=== PATIENT | male | born 1960 | race Caucasian/White ===

== ENCOUNTER 2018-12-10 15:56 | Inpatient (IN) | payer MEDICAID ==
--- NOTE | 2018-12-10 17:00 | EDM.PDOC ---
<Naseem Edwards Linda - Last Filed: 12/10/18 20:26> ED HPI GENERAL MEDICAL PROBLEM - General Chief Complaint: Respiratory Problem Stated Complaint: SOB ON EXERTION Time Seen by Provider: 12/10/18 17:00 History Limitations: Reports: No Limitations - History of Present Illness INITIAL COMMENTS - FREE TEXT/NARRATIVE: 58-year-old male sent over from family medicine unit due to increased dyspnea and reported 13 pound weight gain over a period of a month and 30 pounds probably over the last 2 months. Patient has very poorly controlled type 2 diabetes with a hemoglobin A1c today of 11.5. He has known severe congestive heart failure--unclear if this is due to cardiomyopathy or if there is an ischemic component to his disease process. He was sent over for to the ED because of significant ascites and difficulty breathing as well as shortness of breath on minimal exertion. Labs provided from the clinic reveal a white blood cell count of 6.58. Hemoglobin is 11.3 slightly low hematocrit of 37.3. Platelet count was 195,000. Her pharyngeal is normal. Serum ammonia today was 34 with normal being up to 32 in our lab. Sodium was 139 with potassium of 4.6. Chloride 105 with a bicarbonate of 25. And a gap is 13.6. Random glucose was 316. BUN was 24. Creatinine is 1.4 with an EGFR 52. Calcium is 9.1. Total protein is 7.1 with an albumin of 3.1. Bilirubin slightly elevated at 1.6. Alk phosphatase of 71. ALT of 18 and AST of 11. BNP is elevated at 3434 and ultrasound of the abdomen was completed and reveals diffuse ascites considered to be moderate . is therefore essentially sent to the ED for paracentesis and possible admission to the hospital for diuresis. Onset: Gradual (Has gained 13 pounds of weight over the last month and 30 pounds over the last 2 months.) Duration: Week(s):, Getting Worse Location: Reports: Chest (Ascites shortness of breath on minimal exertion with orthopnea.), Abdomen, Lower Extremity, Left (Severe pitting edema of both lower extremities severe pitting edema), Lower Extremity, Right Quality: Reports: Ache, Pressure, Other Severity: Severe (Very little room for food to try and eat.) Improves with: Reports: None Worsens with: Reports: Movement Context: Reports: Other (Terminal congestive heart failure). Denies: Activity ( Walking.), Exercise, Lifting, Sick Contact, Trauma Associated Symptoms: Reports: Cough, cough w sputum, Loss of Appetite, Malaise ( Occasional white sputum), Shortness of Breath. Denies: Confusion, Chest Pain, Diaphoresis, Fever/Chills, Headaches, Nausea/Vomiting, Rash, Seizure, Syncope Treatments AREA RELIEF PILOT: Reports: Other (see below) (Only his prescribed medications. Clearly he needs to be on insulin to control his type 2 diabetes.) - Related Data Allergies Allergy/AdvReac Type Severity Reaction Status Date / Time No Known Allergies Allergy Verified 12/10/18 16:06 Home Meds: Home Meds Aspirin 325 mg PO DAILY 12/10/18 [History] Carvedilol 25 mg PO BID 12/10/18 [History] Lisinopril 20 mg PO DAILY 12/10/18 [History] Sertraline HCl 100 mg PO DAILY 12/10/18 [History] Spironolactone [Aldactone] 25 mg PO DAILY 12/10/18 [History] glipiZIDE [Glucotrol] 5 mg PO DAILY 12/10/18 [History] metFORMIN [Glucophage] 1,000 mg PO BIDMEALS 12/10/18 [History] Past Medical History Cardiovascular History: Reports: Cardiomyopathy, Heart Failure, Hypertension Respiratory History: Reports: SOB, Other (See Below) (I question whether he has sleep apnea.) Genitourinary History: Reports: BPH Social & Family History - Living Situation & Occupation Living situation: Reports: Single Occupation: Employed [facility] [employer] [facility] - Review of Systems Constitutional: Reports: Malaise, Weakness, Fatigue, Weight Gain (3 pounds over the last 2 months). Denies: Fever, Chills HEENT: Reports: Glasses, Vision Change Respiratory: Reports: Shortness of Breath, Cough, Other (Nonproductive orthopnea ). Denies: Wheezing, Pleuritic Chest Pain Cardiovascular: Reports: Blood Pressure Problem (Chronic hypertension), Dyspnea on Exertion (Chronically) Endocrine: Reports: Fatigue, High Glucose (Uncontrolled type 2 diabetes) GI/Abdominal: Reports: Abdominal Pain (Diffuse abdominal pressure discomfort.), Other (Alt remaining diarrhea and formed stool) : Reports: Frequency, Other Musculoskeletal: Reports: Back Pain (Polyuria), Other Skin: Reports: Other (Lateral lower extremity pain venous stasis dermatitis both lower extremities) Neurological: Reports: No Symptoms Psychiatric: Reports: No Symptoms Hematologic/Lymphatic: Reports: No Symptoms Immunologic: Reports: No Symptoms ED EXAM, GENERAL - Physical Exam Exam: See Below Exam Limited By: Other General Appearance: Alert, WD/WN (The patient is mildly hypertensive. Respiratory distress 20/m with O2 sats of 97-99% on room air.), Mild Distress ( Become short of breath on speaking.) Eye Exam: Bilateral Eye: Normal Inspection Throat/Mouth: Normal Inspection, Normal Lips, Normal Oropharynx Head: Atraumatic, Normocephalic Neck: Normal Inspection, Supple, Non-Tender, Full Range of Motion. No: Carotid Bruit, Lymphadenopathy (L), Lymphadenopathy (R) Respiratory/Chest: No Respiratory Distress, No Accessory Muscle Use, Chest Non- Tender (Mild tachypnea 20-24/m. O2 sats 97% on room air.), Respiratory Distress , Rales (Few rales both bases.). No: Normal Breath Sounds Cardiovascular: Regular Rate, Rhythm, No Gallop, No Murmur, No Rub. No: Normal Peripheral Pulses (No pulses are palpable below the femorals due to severe edema of the lower extremities.), No Edema Peripheral Pulses: 0: Popliteal (L) (No pulses are palpable below the femorals due to severe dependent edema both lower extremities.), Popliteal (R), Posterior Tibial (L), Posterior Tibial (R), Dorsalis Pedis (L), Dorsalis Pedis ( R) GI/Abdominal: Distended, Other (The abdomen is morbidly obese. BMI is 40. He has some peau d'orange changes in his lower abdominal wall from edema under the skin. Abdominal girth limits my ability to palpate any solid organs.). No: Guarding (And firm to palpation with a positive ascites fluid wave.), Rigid, Rebound, Tender Back Exam: No: CVA Tenderness (L), CVA Tenderness (R) Extremities: Pedal Edema (Plus pitting edema up above the knees bilaterally.), Other Neurological: Alert, Oriented (Does have changes in his knees compatible with osteoarthritic changes.), CN II-XII Intact, Normal Cognition Psychiatric: Normal Affect Skin Exam: Warm, Dry, Intact, Normal Color, No Rash ED RESPIRATORY PROCEDURES - Additional/Other Procedure(s) Other (Free Text) Procedure(s): Paracentesis attempted 2 but failed due to the length of the paracentesis catheter that is available to us in the kit. A since abdominal girth is very large and although I gained access to the peritoneal cavity on both occasions I could not withdraw any ascites fluid. The catheters are simply too short to need the old pigtail catheters that were silicone and able to place down to the peritoneal cavity in the pelvis to withdraw peritoneal fluid. ED PROCEDURAL SEDATION - Pre Procedure Indications: other Preparations: procedure explained (Paracentesis), consent signed, oxygen, continuous pulse oximeter, suction, continuous netezza architect, constant attendance - Physical Exam Airway: normal anatomy Cardiovascular: normal heart sounds Respiratory: normal breath sounds Neurological: alert, responsive, NAD Meilampati Classification: 1 (soft palate, anterior/posterior tonsillar pillars , uvula visible) - Procedure Sedation Sedation: versed (parenteral), fentanyl (100 g in total ) ASA Classification: 3 (Patient with a severe systemic disease) - Intra Procedure Condition during procedure: moderately sedated, oxygenation stable Complications: none Reversal: none - Post Procedure Condition after procedure: alert, responds to verbal stimuli - Discharge Condition Patient returned to pre-procedure baseline: Yes Alert prior to discharge: Yes Ambulatory with assistance: Yes Vital signs normal: Yes Time spent with sedated patient: 20 min EKG INTERPRETATION EKG Date: 12/10/18 Time: 13:25 (Done at [facility]) Rhythm: NSR Rate (Beats/Min): 79 Kilmichael: LAD-Left Kilmichael Deviation (-45. Consider left anterior fascicular block.) P-Wave: Enlarged (Left atrial hypertrophy) QRS: Other (Left ventricular hypertrophy pattern.) ST-T: Other (Decreased voltage limb leads.) QT: Prolonged (Mildly prolonged) EKG Interpretation Comments: Abnormal ECG Course - Vital Signs Last Recorded V/S: Last Vital Signs Temp 98.4 F 12/11/18 08:03 Pulse 81 12/11/18 08:31 Resp 22 H 12/11/18 04:34 BP 130/77 12/11/18 08:31 Pulse Ox 97 12/11/18 08:03 - Orders/Labs/Meds Orders: Active Orders 24 hr Category Date Time Status Admission Status [Patient Status] [ADT] Routine ADT 12/10/18 19:21 Active Medication Orders Acetaminophen (Tylenol) 650 mg PO Q4H PRN PRN Reason: Pain (Mild 1-3)/fever Aspirin (Ecotrin) 325 mg PO DAILY [facility] Last Admin: 12/11/18 08:31 Dose: 325 mg Carvedilol (Coreg) 25 mg PO BID [facility] Last Admin: 12/11/18 08:31 Dose: 25 mg Dextrose/Water (Dextrose 50% In Water) 50 ml IVPUSH ASDIRECTED PRN PRN Reason: Hypoglycemia Enoxaparin Sodium (Lovenox) 40 mg SUBCUT DAILY [facility] Last Admin: 12/11/18 08:31 Dose: 40 mg Furosemide (Lasix) 40 mg IVPUSH DAILY [facility] Last Admin: 12/11/18 08:27 Dose: 40 mg Insulin Glargine (Lantus) 20 unit SUBCUT DAILY [facility] Last Admin: 12/11/18 08:28 Dose: 20 units Insulin Human Lispro (Humalog) 0 unit SUBCUT QIDACANDBED [facility]; Protocol Last Admin: 12/11/18 08:29 Dose: 3 units Insulin Human Lispro (Humalog) 5 unit SUBCUT TIDAC [facility] Last Admin: 12/11/18 08:30 Dose: 5 units Lisinopril (Prinivil) 20 mg PO DAILY [facility] Last Admin: 12/11/18 08:31 Dose: 20 mg Sertraline HCl (Zoloft) 100 mg PO DAILY [facility] Last Admin: 12/11/18 08:31 Dose: 100 mg Meds: Medications Generic Name Dose Route Start Last Admin Trade Name Freq PRN Reason Stop Dose Admin Acetaminophen 650 mg 12/10/18 22:03 Tylenol PO Q4H PRN Pain (Mild 1-3)/fever Aspirin 325 mg 12/11/18 09:00 12/11/18 08:31 Ecotrin PO 325 mg DAILY [facility] Administration Carvedilol 25 mg 12/11/18 09:00 12/11/18 08:31 Coreg PO 25 mg BID [facility] Administration Dextrose/Water 50 ml 12/10/18 22:11 Dextrose 50% In Water IVPUSH ASDIRECTED PRN Hypoglycemia Enoxaparin Sodium 40 mg 12/11/18 09:00 12/11/18 08:31 Lovenox SUBCUT 40 mg DAILY [facility] Administration Furosemide 40 mg 12/11/18 09:00 12/11/18 08:27 Lasix IVPUSH 40 mg DAILY [facility] Administration Insulin Glargine 20 unit 12/11/18 09:00 12/11/18 08:28 Lantus SUBCUT 20 units DAILY [facility] Administration Insulin Human Lispro 0 unit 12/11/18 07:00 12/11/18 08:29 Humalog SUBCUT 3 units QIDACANDBED [facility] Administration Protocol Insulin Human Lispro 5 unit 12/11/18 07:00 12/11/18 08:30 Humalog SUBCUT 5 units TIDAC [facility] Administration Lisinopril 20 mg 12/11/18 09:00 12/11/18 08:31 Prinivil PO 20 mg DAILY [facility] Administration Sertraline HCl 100 mg 12/11/18 09:00 12/11/18 08:31 Zoloft PO 100 mg DAILY [facility] Administration Discontinued Medications Generic Name Dose Route Start Last Admin Trade Name Freq PRN Reason Stop Dose Admin Fentanyl 250 mcg 12/10/18 17:53 12/10/18 19:09 Sublimaze IVPUSH 12/10/18 17:54 Not Given ONETIME ONE Fentanyl Confirm 12/10/18 17:57 12/10/18 19:09 Sublimaze Administered 12/10/18 17:58 Not Given Dose 300 mcg .ROUTE .STK-MED ONE Fentanyl 100 mcg 12/10/18 19:08 12/10/18 18:15 Sublimaze IVPUSH 12/10/18 19:09 100 mcg ONETIME ONE Administration Furosemide 40 mg 12/10/18 18:52 12/10/18 19:20 Lasix IVPUSH 12/10/18 18:53 40 mg NOW ONE Administration Albumin Human 12.5 gm in 50 mls @ 100 mls/hr 12/10/18 18:07 12/10/18 19:00 Flexbumin 25% IV 12/10/18 18:36 Not Given ONETIME ONE Insulin Glargine 20 unit 12/11/18 06:00 Lantus SUBCUT BIDAC [facility] Insulin Human Lispro 5 unit 12/11/18 06:00 Humalog SUBCUT BIDAC [facility] Lidocaine/Epinephrine 20 ml 12/10/18 17:54 12/10/18 18:30 Xylocaine 1% With Epinephrine 1:100,000 INJECT 12/10/18 17:55 20 ml ONETIME ONE Administration Midazolam HCl 5 mg 12/10/18 17:53 12/11/18 05:41 Versed 1 Mg/Ml IVPUSH 12/10/18 17:54 Not Given ONETIME ONE Midazolam HCl Confirm 12/10/18 17:57 12/10/18 19:09 Versed 1 Mg/Ml Administered 12/10/18 17:58 Not Given Dose 6 mg .ROUTE .STK-MED ONE Midazolam HCl 5 mg 12/10/18 19:04 12/11/18 05:41 Versed 1 Mg/Ml IVPUSH 12/10/18 19:05 Not Given ONETIME ONE Midazolam HCl 5 mg 12/10/18 19:08 12/10/18 18:16 Versed 1 Mg/Ml IVPUSH 12/10/18 19:09 5 mg ONETIME ONE Administration - Radiology Interpretation Free Text/Narrative:: 58-year-old male presents to the ED after physical examination by his care provider at [facility]. Patient has uncontrolled type 2 diabetes with a hemoglobin A1c today of 11.3. He is currently only on oral medications. He has known congestive heart failure with a 13 pound reported weight gain in the last 2 weeks and 30 pounds over the last 6-8 weeks. is severe orthopnea and has to sleep sitting up for the last several months. Abdominal ultrasound done today revealed moderate amount of ascites. Labs also revealed a BNP of 3434. He has primarily right-sided heart failure but obviously has left-sided heart failure as well. Chest x-ray did not reveal any pleural effusions. He was sent to the ED for possibility of paracentesis being performed. I attempted this procedure but equipment that we have has a catheter that is far too short to reach deep into the peritoneal cavity in a man of his size. Therefore 102 failed to provide any paracentesis fluid. Patient needs to come into the hospital for insulin treatment of his type 2 diabetes as medication orally is not going to fix this problem with a hemoglobin A1c of 11.3. He is also on Aldactone 25 mg once a day which will do absolutely nothing for control of his congestive failure. Patient requires an echocardiogram to assess his cardiac function so far his renal function is mostly preserved. Case discussed with Dr. Negrete nutrition intern hospitalist and he will admit the patient to med surgery on telemetry. The patient did receive conscious sedation to allow paracentesis procedure since the first time that he had a done a year ago was extremely uncomfortable patient received 5 mg of Versed in total and 100 g of fentanyl. Sutures are placed in his abdominal wound to make sure there was no bruising of peritoneal fluid. These need to be removed in 10 days' time. Patient was given initial dose of Lasix 40 mg intravenously in the ED. Patient requires coags done tomorrow morning to assess his ability to clot due to passive hepatic congestion. He also needs a serum magnesium done. Departure - Departure Time of Disposition: 20:30 Disposition: Admitted As Inpatient 65 Condition: Fair Clinical Impression: Congestive heart failure Qualifiers: Heart failure type: unspecified Heart failure chronicity: acute on chronic Qualified Code(s): I50.9 - Heart failure, unspecified Ascites Qualifiers: Ascites type: other type Qualified Code(s): R18.8 - Other ascites Uncontrolled type 2 diabetes mellitus Qualifiers: Coma presence: without coma - Discharge Information *PRESCRIPTION DRUG MONITORING PROGRAM REVIEWED*: Not Applicable *COPY OF PRESCRIPTION DRUG MONITORING REPORT IN PATIENT RAS: Not Applicable <Isabel Umanzor - Last Filed: 12/11/18 09:01> ED HPI GENERAL MEDICAL PROBLEM - General Source of Information: Reports: Patient History Limitations: Reports: No Limitations Past Medical History HEENT History: Reports: Impaired Vision Cardiovascular History: Reports: Heart Failure, Hypertension Genitourinary History: Reports: Other (See Below) Other Genitourinary History: proteinuria Neurological History: Reports: CVA Psychiatric History: Reports: Depression Endocrine/Metabolic History: Reports: Diabetes, Type II, Other (See Below) Other Endocrine/Metabolic History: hyperbilirubinemia Social & Family History - Tobacco Use Smoking Status *Q: Former Smoker Used Tobacco, but Quit: Yes Month/Year Tobacco Last Used: 20 years ago - Caffeine Use Caffeine Use: Reports: Coffee ED ROS GENERAL - Review of Systems Review Of Systems: See Below Cardiovascular: Reports: Dyspnea on Exertion, PND. Denies: Chest Pain Course - Orders/Labs/Meds Orders: Active Orders 24 hr Category Date Time Status Admission Status [Patient Status] [ADT] Routine ADT 12/10/18 19:21 Active Medication Orders Acetaminophen (Tylenol) 650 mg PO Q4H PRN PRN Reason: Pain (Mild 1-3)/fever Aspirin (Ecotrin) 325 mg PO DAILY [facility] Last Admin: 12/11/18 08:31 Dose: 325 mg Carvedilol (Coreg) 25 mg PO BID [facility] Last Admin: 12/11/18 08:31 Dose: 25 mg Dextrose/Water (Dextrose 50% In Water) 50 ml IVPUSH ASDIRECTED PRN PRN Reason: Hypoglycemia Enoxaparin Sodium (Lovenox) 40 mg SUBCUT DAILY [facility] Last Admin: 12/11/18 08:31 Dose: 40 mg Furosemide (Lasix) 40 mg IVPUSH DAILY [facility] Last Admin: 12/11/18 08:27 Dose: 40 mg Insulin Glargine (Lantus) 20 unit SUBCUT DAILY [facility] Last Admin: 12/11/18 08:28 Dose: 20 units Insulin Human Lispro (Humalog) 0 unit SUBCUT QIDACANDBED [facility]; Protocol Last Admin: 12/11/18 08:29 Dose: 3 units Insulin Human Lispro (Humalog) 5 unit SUBCUT TIDAC [facility] Last Admin: 12/11/18 08:30 Dose: 5 units Lisinopril (Prinivil) 20 mg PO DAILY [facility] Last Admin: 12/11/18 08:31 Dose: 20 mg Sertraline HCl (Zoloft) 100 mg PO DAILY [facility] Last Admin: 12/11/18 08:31 Dose: 100 mg Meds: Medications Generic Name Dose Route Start Last Admin Trade Name Freq PRN Reason Stop Dose Admin Acetaminophen 650 mg 12/10/18 22:03 Tylenol PO Q4H PRN Pain (Mild 1-3)/fever Aspirin 325 mg 12/11/18 09:00 12/11/18 08:31 Ecotrin PO 325 mg DAILY [facility] Administration Carvedilol 25 mg 12/11/18 09:00 12/11/18 08:31 Coreg PO 25 mg BID [facility] Administration Dextrose/Water 50 ml 12/10/18 22:11 Dextrose 50% In Water IVPUSH ASDIRECTED PRN Hypoglycemia Enoxaparin Sodium 40 mg 12/11/18 09:00 12/11/18 08:31 Lovenox SUBCUT 40 mg DAILY [facility] Administration Furosemide 40 mg 12/11/18 09:00 12/11/18 08:27 Lasix IVPUSH 40 mg DAILY [facility] Administration Insulin Glargine 20 unit 12/11/18 09:00 12/11/18 08:28 Lantus SUBCUT 20 units DAILY [facility] Administration Insulin Human Lispro 0 unit 12/11/18 07:00 12/11/18 08:29 Humalog SUBCUT 3 units QIDACANDBED [facility] Administration Protocol Insulin Human Lispro 5 unit 12/11/18 07:00 12/11/18 08:30 Humalog SUBCUT 5 units TIDAC [facility] Administration Lisinopril 20 mg 12/11/18 09:00 12/11/18 08:31 Prinivil PO 20 mg DAILY [facility] Administration Sertraline HCl 100 mg 12/11/18 09:00 12/11/18 08:31 Zoloft PO 100 mg DAILY [facility] Administration Discontinued Medications Generic Name Dose Route Start Last Admin Trade Name Jesus Alberto PRN Reason Stop Dose Admin Fentanyl 250 mcg 12/10/18 17:53 12/10/18 19:09 Sublimaze IVPUSH 12/10/18 17:54 Not Given ONETIME ONE Fentanyl Confirm 12/10/18 17:57 12/10/18 19:09 Sublimaze Administered 12/10/18 17:58 Not Given Dose 300 mcg .ROUTE .STK-MED ONE Fentanyl 100 mcg 12/10/18 19:08 12/10/18 18:15 Sublimaze IVPUSH 12/10/18 19:09 100 mcg ONETIME ONE Administration Furosemide 40 mg 12/10/18 18:52 12/10/18 19:20 Lasix IVPUSH 12/10/18 18:53 40 mg NOW ONE Administration Albumin Human 12.5 gm in 50 mls @ 100 mls/hr 12/10/18 18:07 12/10/18 19:00 Flexbumin 25% IV 12/10/18 18:36 Not Given ONETIME ONE Insulin Glargine 20 unit 12/11/18 06:00 Lantus SUBCUT BIDAC [facility] Insulin Human Lispro 5 unit 12/11/18 06:00 Humalog SUBCUT BIDAC [facility] Lidocaine/Epinephrine 20 ml 12/10/18 17:54 12/10/18 18:30 Xylocaine 1% With Epinephrine 1:100,000 INJECT 12/10/18 17:55 20 ml ONETIME ONE Administration Midazolam HCl 5 mg 12/10/18 17:53 12/11/18 05:41 Versed 1 Mg/Ml IVPUSH 12/10/18 17:54 Not Given ONETIME ONE Midazolam HCl Confirm 12/10/18 17:57 12/10/18 19:09 Versed 1 Mg/Ml Administered 12/10/18 17:58 Not Given Dose 6 mg .ROUTE .STK-MED ONE Midazolam HCl 5 mg 12/10/18 19:04 12/11/18 05:41 Versed 1 Mg/Ml IVPUSH 12/10/18 19:05 Not Given ONETIME ONE Midazolam HCl 5 mg 12/10/18 19:08 12/10/18 18:16 Versed 1 Mg/Ml IVPUSH 12/10/18 19:09 5 mg ONETIME ONE Administration - Re-Assessments/Exams Free Text/Narrative Re-Assessment/Exam: 12/10/18 17:[address] Radford, surgery nutrition intern. He does not preform paracentesis. Discussed with Dr. Edwards, Care transferred to Dr. Edwards. Plan for Dr. Edwards to preform the paracentesis.
[2018-12-10] MEDS ORDERED: fentaNYL 250 MCG/5 ML SDV IVPUSH ONE (17:53)
[2018-12-10] MEDS ORDERED: Midazolam 1 MG/ML 5 ML SDV IVPUSH ONE ×3 (17:53→19:08)
[2018-12-10] MEDS ORDERED: Lidocaine 1% with EPINEPHrine 1:100,000 20 ML MDV INJECT ONE (17:54)
[2018-12-10] MEDS ORDERED: fentaNYL 100 MCG/2 ML SDV ONE (17:57)
[2018-12-10] MEDS ORDERED: Midazolam 1 MG/ML 2 ML SDV ONE (17:57)
[2018-12-10] MEDS ORDERED: Albumin 25% 12.5 GM/50 ML BAG IV ONE (18:07)
[2018-12-10] MEDS ORDERED: Furosemide 40 MG/4 ML VIAL IVPUSH ONE (18:52)
[2018-12-10] MEDS ORDERED: fentaNYL 100 MCG/2 ML SDV IVPUSH ONE (19:08)
[2018-12-10] MEDS ORDERED: Acetaminophen 325 MG Tab PO PRN (22:03)
[2018-12-10] MEDS ORDERED: 50% Dextrose in Water 50 ML Syringe IVPUSH PRN (22:11)
[2018-12-11] MEDS ORDERED: Insulin Glarg,Human.Rec.Analog 100 UNIT/ML ML SUBCUT SCH (06:00)
[2018-12-11] MEDS ORDERED: Insulin Lispro 100 Units/ML 3 ML Vial SUBCUT SCH (06:00)
[2018-12-11 08:05] LABS: HEMOGLOBIN A1C 11.3 % (4.50-6.20)
[2018-12-11] MEDS: Insulin Glarg,Human.Rec.Analog 100 UNIT/ML ML SUBCUT SCH (08:28)
[2018-12-11] MEDS: Insulin Lispro 100 Units/ML 3 ML Vial SUBCUT SCH ×8 (08:29→21:50)
[2018-12-11] MEDS: Lisinopril 20 MG Tab PO SCH (08:31)
[2018-12-11] MEDS: Carvedilol 12.5 MG Tab PO SCH ×2 (08:31→20:17)
[2018-12-11] MEDS: Enoxaparin 40 MG/0.4 ML Syringe SUBCUT SCH (08:31)
[2018-12-11] MEDS: Sertraline 50 MG Tab PO SCH (08:31)
[2018-12-11] MEDS: Aspirin 325 MG Tab.EC PO SCH (08:31)
[2018-12-11] MEDS ORDERED: Furosemide 40 MG/4 ML VIAL IVPUSH SCH (09:00)
--- NOTE | 2018-12-11 10:23 | CR ---
Chest: Portable view of the chest was obtained. Comparison: Prior chest x-ray of 12/10/18. Heart is enlarged. Pulmonary vessels are slightly increased which appear stable. Lungs show no acute parenchymal change. Bony structures are grossly intact. Impression: 1. Stable cardiomegaly. Mild chronic pulmonary vascular congestion. Diagnostic code #2
[2018-12-11] MEDS ORDERED: Magnesium Sulfate/Water 2 GM in Premix Bag 1 BAG IV ONE (11:04)
--- NOTE | 2018-12-11 14:34 | PCM.HP ---
H&P History of Present Illness - General Date of Service: 12/11/18 Admit Problem/Dx: Admission Diagnosis/Problem Admission Diagnosis/Problem Congestive heart failure - History of Present Illness Initial Comments - Free Text/Narative: 58 yo WM admitted through ED after a visit to primary provider. Was noticed to have gained 16 Lbs, increased abdominal girth. It was felt that the patient might benefit from paracentesis, attempts were made in ED, unsuccessful. The patient is somewhat secretive and desponded, refuses to answer pertinent questions. Has uncontrolled DM, states that not monitoring BG due to risk of loosing job due to the diagnosis. Admitted for further treatment. - Related Data Allergies/Adverse Reactions: Allergies Allergy/AdvReac Type Severity Reaction Status Date / Time No Known Allergies Allergy Verified 12/10/18 16:06 Home Medications: Home Meds Aspirin 325 mg PO DAILY 12/10/18 [History] Carvedilol 25 mg PO BID 12/10/18 [History] Lisinopril 20 mg PO DAILY 12/10/18 [History] Sertraline HCl 100 mg PO DAILY 12/10/18 [History] Spironolactone [Aldactone] 25 mg PO DAILY 12/10/18 [History] glipiZIDE [Glucotrol] 5 mg PO DAILY 12/10/18 [History] metFORMIN [Glucophage] 1,000 mg PO BIDMEALS 12/10/18 [History] Past Medical History HEENT History: Reports: Impaired Vision Cardiovascular History: Reports: Heart Failure, Hypertension Respiratory History: Reports: SOB, Other (See Below) Other Respiratory History: current dx Genitourinary History: Reports: Other (See Below) Other Genitourinary History: proteinuria Musculoskeletal History: Reports: Other (See Below) Other Musculoskeletal History: broken right wrist and left leg when a child Neurological History: Reports: CVA Other Neuro History: approximately 6 years, residual swallowing difficulty and speaking difficulty at times. Psychiatric History: Reports: Depression Other Psychiatric History: post stroke Endocrine/Metabolic History: Reports: Diabetes, Type II, Other (See Below) Other Endocrine/Metabolic History: hyperbilirubinemia - Infectious Disease History Infectious Disease History: Reports: Chicken Pox - Past Surgical History HEENT Surgical History: Reports: None Cardiovascular Surgical History: Reports: None Respiratory Surgical History: Reports: None Male Surgical History: Reports: None Endocrine Surgical History: Reports: None Musculoskeletal Surgical History: Reports: None Social & Family History - Family History Respiratory: Reports: COPD, Other (See Below) Other Respiratory Family Hisory: mother - Tobacco Use Smoking Status *Q: Former Smoker Used Tobacco, but Quit: Yes Month/Year Tobacco Last Used: 20 years ago Second Hand Smoke Exposure: No - Caffeine Use Caffeine Use: Reports: Coffee - Recreational Drug Use Recreational Drug Use: No - Living Situation & Occupation Living situation: Reports: Single Occupation: Employed H&P Review of Systems - Review of Systems: Review Of Systems: See Below General: Reports: Weight Gain. Denies: Fever, Chills HEENT: Denies: Sore Throat, Visual Changes Pulmonary: Reports: Shortness of Breath. Denies: Wheezing, Pleuritic Chest Pain , Cough, Hemoptysis Cardiovascular: Reports: Dyspnea on Exertion, Edema. Denies: Chest Pain, Palpitations, Syncope Gastrointestinal: Reports: Other (increasing abdominal girth). Denies: Abdominal Pain, Anorexia, Diarrhea, Vomiting Genitourinary: Denies: Dysuria, Frequency Skin: Denies: Cyanosis, Jaundice Psychiatric: Denies: Confusion, Depression, Suicidal Ideation Neurological: Reports: Pre-Existing Deficit (left facial) Hematologic/Lymphatic: Denies: Easy Bleeding, Easy Bruising Exam - Exam Exam: See Below - Vital Signs Vital Signs: Last Vital Signs Temp 98.4 F 12/11/18 08:03 Pulse 81 12/11/18 08:31 Resp 22 H 12/11/18 04:34 BP 130/77 12/11/18 08:31 Pulse Ox 97 12/11/18 08:03 Weight: 302 lb - Exam Quality Assessment: No: Supplemental Oxygen General: Alert, Oriented HEENT: Conjunctiva Clear, EOMI, Mucosa Moist & [place], Pupils Equal Neck: Supple, Trachea Midline, JVD Lungs: Clear to Auscultation, Rales. No: Wheezing Cardiovascular: Regular Rate, Regular Rhythm, Normal S1, Normal S2. No: Gallop/ S3 GI/Abdominal Exam: Normal Bowel Sounds, Distended. No: Tender Extremities: Pedal Edema, Other (venous stasis) Peripheral Pulses: 2+: Dorsalis Pedis (L), Dorsalis Pedis (R) Skin: Warm, Dry, Intact Neuro Extensive - Mental Status: Alert, Oriented x3, Memory Intact Neuro Extensive - Motor, Sensory, Reflexes: Facial palsy (L), Facial Palsy wo Forehead Psychiatric: Alert, Homicidal Ideation - Patient Data Lab Results Last 24 hrs: Laboratory Results - last 24 hr 12/11/18 12/11/18 12/11/18 Range/Units 05:50 05:50 05:50 WBC 5.98 (4.23-9.07) K/mm3 RBC 4.34 L (4.63-6.08) M/mm3 Hgb 11.4 L (13.7-17.5) gm/L Hct 37.5 L (40.1-51.0) % MCV 86.4 (79.0-92.2) fl MCH 26.3 (25.7-32.2) pg MCHC 30.4 L (32.2-35.5) g/dl RDW Std Deviation 55.7 H (35.1-43.9) fL Plt Count 185 (163-337) K/mm3 MPV 11.4 (9.4-12.3) fl Neut % (Auto) 63.1 (34.0-67.9) % Lymph % (Auto) 19.4 L (21.8-53.1) % Hitchcock % (Auto) 14.0 H (5.3-12.2) % Eos % (Auto) 2.3 (0.8-7.0) Baso % (Auto) 1.2 (0.1-1.2) % Neut # (Auto) 3.77 (1.78-5.38) K/mm3 Lymph # (Auto) 1.16 L (1.32-3.57) K/mm3 Hitchcock # (Auto) 0.84 H (0.30-0.82) K/mm3 Eos # (Auto) 0.14 (0.04-0.54) K/mm3 Baso # (Auto) 0.07 (0.01-0.08) K/mm3 PT 12.6 H (9.5-12.1) SECONDS INR 1.16 APTT 26 (24-31) SECONDS Sodium 141 (136-145) mEq/L Potassium 4.1 (3.5-5.1) mEq/L Chloride 104 (98-107) mEq/L Carbon Dioxide 27 (21-32) mEq/L Anion Gap 14.1 (5-15) BUN 26 H (7-18) mg/dL Creatinine 1.1 (0.7-1.3) mg/dL Est Cr Clr Drug Dosing 84.07 mL/min Estimated GFR (MDRD) > 60 (>60) mL/min BUN/Creatinine Ratio 23.6 H (14-18) Glucose 237 H (74-106) mg/dL POC Glucose (70-105) mg/dL Hemoglobin A1c (4.50-6.20) % Calcium 8.8 (8.5-10.1) mg/dL Phosphorus 4.1 (2.6-4.7) mg/dL Magnesium 1.4 L (1.8-2.4) mg/dl Total Bilirubin 1.8 H (0.2-1.0) mg/dL AST 12 L (15-37) U/L ALT 14 L (16-63) U/L Alkaline Phosphatase 59 (46-116) U/L Total Protein 6.9 (6.4-8.2) g/dl Albumin 3.0 L (3.4-5.0) g/dl Globulin 3.9 gm/dL Albumin/Globulin Ratio 0.8 L (1-2) Triglycerides 59 (<150) mg/dL Cholesterol 80 (<200) mg/dL LDL Cholesterol Direct 47 (<100) mg/dL HDL Cholesterol 26.0 L (40-59) mg/dL 12/11/18 12/11/18 12/11/18 Range/Units 05:50 06:28 11:34 WBC (4.23-9.07) K/mm3 RBC (4.63-6.08) M/mm3 Hgb (13.7-17.5) gm/L Hct (40.1-51.0) % MCV (79.0-92.2) fl MCH (25.7-32.2) pg MCHC (32.2-35.5) g/dl RDW Std Deviation (35.1-43.9) fL Plt Count (163-337) K/mm3 MPV (9.4-12.3) fl Neut % (Auto) (34.0-67.9) % Lymph % (Auto) (21.8-53.1) % Hitchcock % (Auto) (5.3-12.2) % Eos % (Auto) (0.8-7.0) Baso % (Auto) (0.1-1.2) % Neut # (Auto) (1.78-5.38) K/mm3 Lymph # (Auto) (1.32-3.57) K/mm3 Hitchcock # (Auto) (0.30-0.82) K/mm3 Eos # (Auto) (0.04-0.54) K/mm3 Baso # (Auto) (0.01-0.08) K/mm3 PT (9.5-12.1) SECONDS INR APTT (24-31) SECONDS Sodium (136-145) mEq/L Potassium (3.5-5.1) mEq/L Chloride (98-107) mEq/L Carbon Dioxide (21-32) mEq/L Anion Gap (5-15) BUN (7-18) mg/dL Creatinine (0.7-1.3) mg/dL Est Cr Clr Drug Dosing mL/min Estimated GFR (MDRD) (>60) mL/min BUN/Creatinine Ratio (14-18) Glucose (74-106) mg/dL POC Glucose 259 H 268 H (70-105) mg/dL Hemoglobin A1c 11.30 H (4.50-6.20) % Calcium (8.5-10.1) mg/dL Phosphorus (2.6-4.7) mg/dL Magnesium (1.8-2.4) mg/dl Total Bilirubin (0.2-1.0) mg/dL AST (15-37) U/L ALT (16-63) U/L Alkaline Phosphatase (46-116) U/L Total Protein (6.4-8.2) g/dl Albumin (3.4-5.0) g/dl Globulin gm/dL Albumin/Globulin Ratio (1-2) Triglycerides (<150) mg/dL Cholesterol (<200) mg/dL LDL Cholesterol Direct (<100) mg/dL HDL Cholesterol (40-59) mg/dL Result Diagrams: 12/11/18 05:50 12/11/18 05:50 - Problem List (1) Congestive heart failure SNOMED Code(s): 63779689 ICD Code: I50.9 - HEART FAILURE, UNSPECIFIED Status: Acute Priority: High Current Visit: Yes Qualifiers: Heart failure type: unspecified Heart failure chronicity: acute on chronic Qualified Code(s): I50.9 - Heart failure, unspecified (2) Uncontrolled type 2 diabetes mellitus SNOMED Code(s): 829791433, 982354934 ICD Code: E11.65 - TYPE 2 DIABETES MELLITUS WITH HYPERGLYCEMIA Status: Acute Priority: High Current Visit: Yes Qualifiers: Coma presence: without coma Problem List Initiated/Reviewed/Updated: Yes Orders Last 24hrs: Active Orders 24 hr Category Date Time Status Admission Status [Patient Status] [ADT] Routine ADT 12/10/18 19:21 Active Blood Glucose Check, Bedside [RC] QIDACANDBED Care 12/10/18 22:16 Active Height and Weight [RC] 04 Care 12/10/18 22:03 Active Oxygen Therapy [RC] PRN Care 12/10/18 22:03 Active Up ad Rosangela [RC] BID Care 12/10/18 22:03 Active VTE/DVT Education [RC] PER UNIT ROUTINE Care 12/10/18 22:03 Active Vital Signs [RC] Q4HR Care 12/10/18 22:03 Active Weight, Daily [Height and Weight] [RC] DAILY Care 12/11/18 14:26 Active Consult to Diabetic Nurse Specialist [CONS] Routine Cons 12/10/18 22:03 Active Consult to Mileage Clerk [CONS] Routine Cons 12/11/18 07:54 Active DUPLIGRAPH OPERATOR Evaluation and Treatment [CONS] Routine Cons 12/11/18 11:04 Active Heart Healthy Diet [DIET] Diet 12/11/18 Breakfast Active Echo Comp wo Cont [US] Routine Exams 12/11/18 14:25 Ordered ABG [BLOOD GAS ARTERIAL] [BG] Timed Lab 12/11/18 14:25 Ordered CBC WITH AUTO DIFF [HEME] AM Lab 12/12/18 05:11 Ordered COMPREHENSIVE METABOLIC PN,CMP [CHEM] AM Lab 12/12/18 05:11 Ordered CREATINE KINASE,CK [CHEM] AM Lab 12/12/18 05:11 Ordered LACTIC ACID [CHEM] Routine Lab 12/11/18 14:25 Ordered LIPASE [CHEM] AM Lab 12/12/18 05:11 Ordered LIPID PANEL [CHEM] AM Lab 12/12/18 05:11 Ordered MAGNESIUM [CHEM] AM Lab 12/12/18 05:00 Ordered PHOSPHORUS [CHEM] AM Lab 12/12/18 05:00 Ordered PRO B-TYPE NATRIUR PEPT,BNPPRO [CHEM] AM Lab 12/12/18 05:11 Ordered PTT,PARTIAL THROMBOPLSTIN TIME [COAG] AM Lab 12/12/18 05:11 Ordered TROPONIN I [CHEM] AM Lab 12/12/18 05:11 Ordered TSH [CHEM] AM Lab 12/12/18 05:11 Ordered Acetaminophen [Tylenol] Med 12/10/18 22:03 Active 650 mg PO Q4H PRN Aspirin [Ecotrin] Med 12/11/18 09:00 Active 325 mg PO DAILY Carvedilol [Coreg] Med 12/11/18 09:00 Active 25 mg PO BID Dextrose 50% in Water Med 12/10/18 22:11 Active 50 ml IVPUSH ASDIRECTED PRN Enoxaparin [Lovenox] Med 12/11/18 09:00 Active 40 mg SUBCUT DAILY Insulin Glarg,Human.Rec.Analog [LantUS] Med 12/11/18 09:00 Active 20 unit SUBCUT DAILY Insulin Lispro [HumaLOG] Med 12/11/18 07:00 Active 5 unit SUBCUT TIDAC Insulin Lispro [HumaLOG] Med 12/11/18 14:28 Ordered See Protocol SUBCUT QIDACANDBED Lisinopril [Prinivil] Med 12/11/18 09:00 Active 20 mg PO DAILY Sertraline [Zoloft] Med 12/11/18 09:00 Active 100 mg PO DAILY Resuscitation Status Routine Resus Stat 12/10/18 21:50 Ordered Medication Orders Acetaminophen (Tylenol) 650 mg PO Q4H PRN PRN Reason: Pain (Mild 1-3)/fever Aspirin (Ecotrin) 325 mg PO DAILY [facility] Last Admin: 12/11/18 08:31 Dose: 325 mg Carvedilol (Coreg) 25 mg PO BID [facility] Last Admin: 12/11/18 08:31 Dose: 25 mg Dextrose/Water (Dextrose 50% In Water) 50 ml IVPUSH ASDIRECTED PRN PRN Reason: Hypoglycemia Enoxaparin Sodium (Lovenox) 40 mg SUBCUT DAILY [facility] Last Admin: 12/11/18 08:31 Dose: 40 mg Insulin Glargine (Lantus) 20 unit SUBCUT DAILY [facility] Last Admin: 12/11/18 08:28 Dose: 20 units Insulin Human Lispro (Humalog) 5 unit SUBCUT TIDAC [facility] Last Admin: 12/11/18 11:42 Dose: 5 units Admin: 12/11/18 08:30 Dose: 5 units Insulin Human Lispro (Humalog) 0 unit SUBCUT QIDACANDBED [facility]; Protocol Lisinopril (Prinivil) 20 mg PO DAILY [facility] Last Admin: 12/11/18 08:31 Dose: 20 mg Sertraline HCl (Zoloft) 100 mg PO DAILY [facility] Last Admin: 12/11/18 08:31 Dose: 100 mg Assessment/Plan Comment:: 1. Daily weights, 2D ECHO, diuresis, unloading, ACEi, BBL. 2. Start glargine with SSI. 3. DVTP. 4. Unlikely the patient needs urgent paracentesis. Will observe the response with the above.
[2018-12-11] MEDS ORDERED: Furosemide 40 MG/4 ML VIAL IVPUSH ONE (14:44)
[2018-12-11] MEDS ORDERED: FUROSEMIDE IV ONE ×2 (15:00→15:02)
[2018-12-11] MEDS ORDERED: SODIUM CHLORIDE 0.9% IV ONE ×2 (15:00→15:02)
[2018-12-11] MEDS: Spironolactone 25 MG Tab PO SCH ×2 (15:24→20:18)
[2018-12-12] MEDS ORDERED: 50% Dextrose in Water 50 ML SDV IV PRN (07:05)
[2018-12-12] MEDS: Insulin Lispro 100 Units/ML 3 ML Vial SUBCUT SCH ×7 (08:25→21:03)
[2018-12-12] MEDS: Enoxaparin 40 MG/0.4 ML Syringe SUBCUT SCH (08:25)
[2018-12-12] MEDS: Insulin Glarg,Human.Rec.Analog 100 UNIT/ML ML SUBCUT SCH (08:27)
[2018-12-12] MEDS: Aspirin 325 MG Tab.EC PO SCH (08:28)
[2018-12-12] MEDS: Sertraline 50 MG Tab PO SCH (08:28)
[2018-12-12] MEDS: Spironolactone 25 MG Tab PO SCH ×2 (08:28→20:54)
[2018-12-12] MEDS: Carvedilol 12.5 MG Tab PO SCH ×2 (08:28→20:55)
[2018-12-12] MEDS: Lisinopril 20 MG Tab PO SCH (08:28)
[2018-12-12] MEDS ORDERED: Magnesium Sulfate/Water 2 GM in Premix Bag 1 BAG IV ONE (10:00)
--- NOTE | 2018-12-12 12:16 | PCM.PN ---
- General Info Date of Service: 12/12/18 Admission Dx/Problem (Free Text): Admission Diagnosis/Problem Admission Diagnosis/Problem Congestive heart failure 58 yo WM admitted through ED after a visit to primary provider. Was noticed to have gained 16 Lbs, increased abdominal girth. It was felt that the patient might benefit from paracentesis, attempts were made in ED, unsuccessful. The patient is somewhat secretive and desponded, refuses to answer pertinent questions. Has uncontrolled DM, states that not monitoring BG due to risk of loosing job due to the diagnosis. Admitted for further treatment. 12/12/18, responding well to diuresis, electrolytes replaced, SOB improving, ECHO results still pending. - Review of Systems Systems Review Comment:: General: Reports: Weight Gain. Denies: Fever, Chills HEENT: Denies: Sore Throat, Visual Changes Pulmonary: Reports: Shortness of Breath. Denies: Wheezing, Pleuritic Chest Pain , Cough, Hemoptysis Cardiovascular: Reports: Dyspnea on Exertion, Edema. Denies: Chest Pain, Palpitations, Syncope Gastrointestinal: Reports: Other (increasing abdominal girth). Denies: Abdominal Pain, Anorexia, Diarrhea, Vomiting Genitourinary: Denies: Dysuria, Frequency Skin: Denies: Cyanosis, Jaundice Psychiatric: Denies: Confusion, Depression, Suicidal Ideation Neurological: Reports: Pre-Existing Deficit (left facial) Hematologic/Lymphatic: Denies: Easy Bleeding, Easy Bruising - Patient Data Vitals - Most Recent: Last Vital Signs Temp 97.3 F 12/12/18 07:30 Pulse 71 12/12/18 08:28 Resp 20 12/12/18 07:30 BP 121/89 12/12/18 08:28 Pulse Ox 96 12/12/18 07:30 Weight - Most Recent: 297 lb 3.2 oz I&O - Last 24 Hours: Intake & Output 12/12/18 12/12/18 12/12/18 03:59 11:59 19:59 Intake Total 440 Output Total 2350 Balance -1910 Lab Results Last 24 Hours: Laboratory Results - last 24 hr 12/11/18 12/11/18 12/11/18 Range/Units 14:53 15:35 17:28 WBC (4.23-9.07) K/mm3 RBC (4.63-6.08) M/mm3 Hgb (13.7-17.5) gm/L Hct (40.1-51.0) % MCV (79.0-92.2) fl MCH (25.7-32.2) pg MCHC (32.2-35.5) g/dl RDW Std Deviation (35.1-43.9) fL Plt Count (163-337) K/mm3 MPV (9.4-12.3) fl Neut % (Auto) (34.0-67.9) % Lymph % (Auto) (21.8-53.1) % [place] % (Auto) (5.3-12.2) % Eos % (Auto) (0.8-7.0) Baso % (Auto) (0.1-1.2) % Neut # (Auto) (1.78-5.38) K/mm3 Lymph # (Auto) (1.32-3.57) K/mm3 [place] # (Auto) (0.30-0.82) K/mm3 Eos # (Auto) (0.04-0.54) K/mm3 Baso # (Auto) (0.01-0.08) K/mm3 APTT (24-31) SECONDS Puncture Site Lt radial ABG pH 7.39 (7.35-7.45) ABG pCO2 43.2 (35.0-45.0) mmHg ABG pO2 72.0 L (80.0-100.0) mmHg ABG HCO3 25.5 (22.0-26.0) meq/L ABG O2 Saturation 92.2 L (96.0-97.0) % ABG Base Excess 0.9 (-2-2.0) Vik Test Positive A-a Gradient 9 mmHg O2 Delivery Device Room air FiO2 21.00 (21.00-100.00) % Sodium (136-145) mEq/L Potassium (3.5-5.1) mEq/L Chloride (98-107) mEq/L Carbon Dioxide (21-32) mEq/L Anion Gap (5-15) BUN (7-18) mg/dL Creatinine (0.7-1.3) mg/dL Est Cr Clr Drug Dosing mL/min Estimated GFR (MDRD) (>60) mL/min BUN/Creatinine Ratio (14-18) Glucose (74-106) mg/dL POC Glucose 231 H (70-105) mg/dL Lactic Acid 1.8 (0.4-2.0) mmol/L Calcium (8.5-10.1) mg/dL Phosphorus (2.6-4.7) mg/dL Magnesium (1.8-2.4) mg/dl Total Bilirubin (0.2-1.0) mg/dL AST (15-37) U/L ALT (16-63) U/L Alkaline Phosphatase (46-116) U/L Creatine Kinase (39-308) U/L Troponin I (0.00-0.056) ng/mL NT-Pro-B Natriuret Pep (0-125) pg/mL Total Protein (6.4-8.2) g/dl Albumin (3.4-5.0) g/dl Globulin gm/dL Albumin/Globulin Ratio (1-2) Triglycerides (<150) mg/dL Cholesterol (<200) mg/dL LDL Cholesterol Direct (<100) mg/dL HDL Cholesterol (40-59) mg/dL Lipase (73-393) U/L TSH 3rd Generation (0.358-3.74) uIU/mL 12/11/18 12/11/18 12/12/18 Range/Units 20:08 21:02 04:45 WBC (4.23-9.07) K/mm3 RBC (4.63-6.08) M/mm3 Hgb (13.7-17.5) gm/L Hct (40.1-51.0) % MCV (79.0-92.2) fl MCH (25.7-32.2) pg MCHC (32.2-35.5) g/dl RDW Std Deviation (35.1-43.9) fL Plt Count (163-337) K/mm3 MPV (9.4-12.3) fl Neut % (Auto) (34.0-67.9) % Lymph % (Auto) (21.8-53.1) % [place] % (Auto) (5.3-12.2) % Eos % (Auto) (0.8-7.0) Baso % (Auto) (0.1-1.2) % Neut # (Auto) (1.78-5.38) K/mm3 Lymph # (Auto) (1.32-3.57) K/mm3 [place] # (Auto) (0.30-0.82) K/mm3 Eos # (Auto) (0.04-0.54) K/mm3 Baso # (Auto) (0.01-0.08) K/mm3 APTT (24-31) SECONDS Puncture Site ABG pH (7.35-7.45) ABG pCO2 (35.0-45.0) mmHg ABG pO2 (80.0-100.0) mmHg ABG HCO3 (22.0-26.0) meq/L ABG O2 Saturation (96.0-97.0) % ABG Base Excess (-2-2.0) Vik Test A-a Gradient mmHg O2 Delivery Device FiO2 (21.00-100.00) % Sodium 139 (136-145) mEq/L Potassium 4.3 (3.5-5.1) mEq/L Chloride 101 (98-107) mEq/L Carbon Dioxide 31 (21-32) mEq/L Anion Gap 11.3 (5-15) BUN 32 H (7-18) mg/dL Creatinine 1.3 (0.7-1.3) mg/dL Est Cr Clr Drug Dosing 71.16 mL/min Estimated GFR (MDRD) 57 (>60) mL/min BUN/Creatinine Ratio 24.6 H (14-18) Glucose 200 H (74-106) mg/dL POC Glucose 191 H (70-105) mg/dL Lactic Acid (0.4-2.0) mmol/L Calcium 9.5 (8.5-10.1) mg/dL Phosphorus 4.7 4.6 (2.6-4.7) mg/dL Magnesium 1.8 1.7 L (1.8-2.4) mg/dl Total Bilirubin (0.2-1.0) mg/dL AST (15-37) U/L ALT (16-63) U/L Alkaline Phosphatase (46-116) U/L Creatine Kinase (39-308) U/L Troponin I (0.00-0.056) ng/mL NT-Pro-B Natriuret Pep (0-125) pg/mL Total Protein (6.4-8.2) g/dl Albumin (3.4-5.0) g/dl Globulin gm/dL Albumin/Globulin Ratio (1-2) Triglycerides (<150) mg/dL Cholesterol (<200) mg/dL LDL Cholesterol Direct (<100) mg/dL HDL Cholesterol (40-59) mg/dL Lipase (73-393) U/L TSH 3rd Generation (0.358-3.74) uIU/mL 12/12/18 12/12/18 12/12/18 Range/Units 04:45 04:45 04:45 WBC 6.73 (4.23-9.07) K/mm3 RBC 4.19 L (4.63-6.08) M/mm3 Hgb 10.9 L (13.7-17.5) gm/L Hct 35.6 L (40.1-51.0) % MCV 85.0 (79.0-92.2) fl MCH 26.0 (25.7-32.2) pg MCHC 30.6 L (32.2-35.5) g/dl RDW Std Deviation 53.5 H (35.1-43.9) fL Plt Count 196 (163-337) K/mm3 MPV 11.4 (9.4-12.3) fl Neut % (Auto) 70.5 H (34.0-67.9) % Lymph % (Auto) 15.9 L (21.8-53.1) % [place] % (Auto) 11.1 (5.3-12.2) % Eos % (Auto) 1.9 (0.8-7.0) Baso % (Auto) 0.6 (0.1-1.2) % Neut # (Auto) 4.74 (1.78-5.38) K/mm3 Lymph # (Auto) 1.07 L (1.32-3.57) K/mm3 [place] # (Auto) 0.75 (0.30-0.82) K/mm3 Eos # (Auto) 0.13 (0.04-0.54) K/mm3 Baso # (Auto) 0.04 (0.01-0.08) K/mm3 APTT 26 (24-31) SECONDS Puncture Site ABG pH (7.35-7.45) ABG pCO2 (35.0-45.0) mmHg ABG pO2 (80.0-100.0) mmHg ABG HCO3 (22.0-26.0) meq/L ABG O2 Saturation (96.0-97.0) % ABG Base Excess (-2-2.0) Vik Test A-a Gradient mmHg O2 Delivery Device FiO2 (21.00-100.00) % Sodium 138 (136-145) mEq/L Potassium 4.2 (3.5-5.1) mEq/L Chloride 101 (98-107) mEq/L Carbon Dioxide 28 (21-32) mEq/L Anion Gap 13.2 (5-15) BUN 31 H (7-18) mg/dL Creatinine 1.1 (0.7-1.3) mg/dL Est Cr Clr Drug Dosing 84.10 mL/min Estimated GFR (MDRD) > 60 (>60) mL/min BUN/Creatinine Ratio 28.2 H (14-18) Glucose 214 H (74-106) mg/dL POC Glucose (70-105) mg/dL Lactic Acid (0.4-2.0) mmol/L Calcium 8.8 (8.5-10.1) mg/dL Phosphorus (2.6-4.7) mg/dL Magnesium (1.8-2.4) mg/dl Total Bilirubin 1.7 H (0.2-1.0) mg/dL AST 18 (15-37) U/L ALT 17 (16-63) U/L Alkaline Phosphatase 64 (46-116) U/L Creatine Kinase 24 L (39-308) U/L Troponin I 0.028 (0.00-0.056) ng/mL NT-Pro-B Natriuret Pep (0-125) pg/mL Total Protein 6.9 (6.4-8.2) g/dl Albumin 3.0 L (3.4-5.0) g/dl Globulin 3.9 gm/dL Albumin/Globulin Ratio 0.8 L (1-2) Triglycerides 40 (<150) mg/dL Cholesterol 78 (<200) mg/dL LDL Cholesterol Direct 44 (<100) mg/dL HDL Cholesterol 29.0 L (40-59) mg/dL Lipase 187 (73-393) U/L TSH 3rd Generation 1.772 (0.358-3.74) uIU/mL 12/12/18 12/12/18 12/12/18 Range/Units 04:45 06:49 10:39 WBC (4.23-9.07) K/mm3 RBC (4.63-6.08) M/mm3 Hgb (13.7-17.5) gm/L Hct (40.1-51.0) % MCV (79.0-92.2) fl MCH (25.7-32.2) pg MCHC (32.2-35.5) g/dl RDW Std Deviation (35.1-43.9) fL Plt Count (163-337) K/mm3 MPV (9.4-12.3) fl Neut % (Auto) (34.0-67.9) % Lymph % (Auto) (21.8-53.1) % [place] % (Auto) (5.3-12.2) % Eos % (Auto) (0.8-7.0) Baso % (Auto) (0.1-1.2) % Neut # (Auto) (1.78-5.38) K/mm3 Lymph # (Auto) (1.32-3.57) K/mm3 [place] # (Auto) (0.30-0.82) K/mm3 Eos # (Auto) (0.04-0.54) K/mm3 Baso # (Auto) (0.01-0.08) K/mm3 APTT (24-31) SECONDS Puncture Site ABG pH (7.35-7.45) ABG pCO2 (35.0-45.0) mmHg ABG pO2 (80.0-100.0) mmHg ABG HCO3 (22.0-26.0) meq/L ABG O2 Saturation (96.0-97.0) % ABG Base Excess (-2-2.0) Vik Test A-a Gradient mmHg O2 Delivery Device FiO2 (21.00-100.00) % Sodium (136-145) mEq/L Potassium (3.5-5.1) mEq/L Chloride (98-107) mEq/L Carbon Dioxide (21-32) mEq/L Anion Gap (5-15) BUN (7-18) mg/dL Creatinine (0.7-1.3) mg/dL Est Cr Clr Drug Dosing mL/min Estimated GFR (MDRD) (>60) mL/min BUN/Creatinine Ratio (14-18) Glucose (74-106) mg/dL POC Glucose 236 H 280 H (70-105) mg/dL Lactic Acid (0.4-2.0) mmol/L Calcium (8.5-10.1) mg/dL Phosphorus (2.6-4.7) mg/dL Magnesium (1.8-2.4) mg/dl Total Bilirubin (0.2-1.0) mg/dL AST (15-37) U/L ALT (16-63) U/L Alkaline Phosphatase (46-116) U/L Creatine Kinase (39-308) U/L Troponin I (0.00-0.056) ng/mL NT-Pro-B Natriuret Pep 2158 H (0-125) pg/mL Total Protein (6.4-8.2) g/dl Albumin (3.4-5.0) g/dl Globulin gm/dL Albumin/Globulin Ratio (1-2) Triglycerides (<150) mg/dL Cholesterol (<200) mg/dL LDL Cholesterol Direct (<100) mg/dL HDL Cholesterol (40-59) mg/dL Lipase (73-393) U/L TSH 3rd Generation (0.358-3.74) uIU/mL Med Orders - Current: Current Medications Acetaminophen (Tylenol) 650 mg PO Q4H PRN PRN Reason: Pain (Mild 1-3)/fever Aspirin (Ecotrin) 325 mg PO DAILY [facility] Last Admin: 12/12/18 08:28 Dose: 325 mg Carvedilol (Coreg) 25 mg PO BID [facility] Last Admin: 12/12/18 08:28 Dose: 25 mg Dextrose/Water (Dextrose 50% In Water) 50 ml IV ASDIRECTED PRN PRN Reason: Hypoglycemia Enoxaparin Sodium (Lovenox) 40 mg SUBCUT DAILY [facility] Last Admin: 12/12/18 08:25 Dose: 40 mg Furosemide (Lasix) 80 mg IVPUSH NOW ONE Stop: 12/12/18 12:11 Hydrochlorothiazide (Hydrochlorothiazide) 25 mg PO ONETIME ONE Stop: 12/12/18 12:12 Insulin Glargine (Lantus) 20 unit SUBCUT DAILY [facility] Last Admin: 12/12/18 08:27 Dose: 20 units Insulin Human Lispro (Humalog) 5 unit SUBCUT TIDAC [facility] Last Admin: 12/12/18 12:06 Dose: 5 units Insulin Human Lispro (Humalog) 0 unit SUBCUT QIDACANDBED [facility]; Protocol Last Admin: 12/12/18 12:07 Dose: 6 units Lisinopril (Prinivil) 20 mg PO DAILY [facility] Last Admin: 12/12/18 08:28 Dose: 20 mg Sertraline HCl (Zoloft) 100 mg PO DAILY [facility] Last Admin: 12/12/18 08:28 Dose: 100 mg Spironolactone (Aldactone) 50 mg PO BID [facility] Last Admin: 12/12/18 08:28 Dose: 50 mg Discontinued Medications Dextrose/Water (Dextrose 50% In Water) 50 ml IVPUSH ASDIRECTED PRN PRN Reason: Hypoglycemia Fentanyl (Sublimaze) 250 mcg IVPUSH ONETIME ONE Stop: 12/10/18 17:54 Last Admin: 12/10/18 19:09 Dose: Not Given Fentanyl (Sublimaze) Confirm Administered Dose 300 mcg .ROUTE .STK-MED ONE Stop: 12/10/18 17:58 Last Admin: 12/10/18 19:09 Dose: Not Given Fentanyl (Sublimaze) 100 mcg IVPUSH ONETIME ONE Stop: 12/10/18 19:09 Last Admin: 12/10/18 18:15 Dose: 100 mcg Furosemide (Lasix) 40 mg IVPUSH NOW ONE Stop: 12/10/18 18:53 Last Admin: 12/10/18 19:20 Dose: 40 mg Furosemide (Lasix) 40 mg IVPUSH DAILY [facility] Last Admin: 12/11/18 08:27 Dose: 40 mg Furosemide (Lasix) 80 mg IVPUSH NOW ONE Stop: 12/11/18 14:45 Last Admin: 12/11/18 15:04 Dose: Not Given Albumin Human (Flexbumin 25%) 12.5 gm in 50 mls @ 100 mls/hr IV ONETIME ONE Stop: 12/10/18 18:36 Last Admin: 12/10/18 19:00 Dose: Not Given Magnesium Sulfate 2 gm/ Premix 50 mls @ 25 mls/hr IV ONETIME ONE Stop: 12/11/18 13:03 Last Admin: 12/11/18 11:43 Dose: 25 mls/hr Furosemide 40 mg/ Sodium (Chloride) 46 mls @ 42.593 mls/hr IV ONETIME ONE Stop: 12/11/18 16:04 Last Admin: 12/11/18 16:31 Dose: Not Given Furosemide 80 mg/ Sodium (Chloride) 50 mls @ 46.296 mls/hr IV ONETIME ONE Stop: 12/11/18 16:04 Last Admin: 12/11/18 15:24 Dose: 46.296 mls/hr Magnesium Sulfate 2 gm/ Premix 50 mls @ 25 mls/hr IV ONETIME ONE Stop: 12/12/18 11:59 Last Admin: 12/12/18 10:33 Dose: 25 mls/hr Insulin Glargine (Lantus) 20 unit SUBCUT BIDAC [facility] Insulin Human Lispro (Humalog) 0 unit SUBCUT QIDACANDBED [facility]; Protocol Last Admin: 12/11/18 11:41 Dose: 3 units Insulin Human Lispro (Humalog) 5 unit SUBCUT BIDAC [facility] Lidocaine/Epinephrine (Xylocaine 1% With Epinephrine 1:100,000) 20 ml INJECT ONETIME ONE Stop: 12/10/18 17:55 Last Admin: 12/10/18 18:30 Dose: 20 ml Midazolam HCl (Versed 1 Mg/Ml) 5 mg IVPUSH ONETIME ONE Stop: 12/10/18 17:54 Last Admin: 12/11/18 05:41 Dose: Not Given Midazolam HCl (Versed 1 Mg/Ml) Confirm Administered Dose 6 mg .ROUTE .STK-MED ONE Stop: 12/10/18 17:58 Last Admin: 12/10/18 19:09 Dose: Not Given Midazolam HCl (Versed 1 Mg/Ml) 5 mg IVPUSH ONETIME ONE Stop: 12/10/18 19:05 Last Admin: 12/11/18 05:41 Dose: Not Given Midazolam HCl (Versed 1 Mg/Ml) 5 mg IVPUSH ONETIME ONE Stop: 12/10/18 19:09 Last Admin: 12/10/18 18:16 Dose: 5 mg - Exam Physical Findings Comments:: General: Alert, Oriented HEENT: Conjunctiva Clear, EOMI, Mucosa Moist & [place], Pupils Equal Neck: Supple, Trachea Midline, JVD Lungs: Clear to Auscultation, Rales. No: Wheezing Cardiovascular: Regular Rate, Regular Rhythm, Normal S1, Normal S2. No: Gallop/ S3 GI/Abdominal Exam: Normal Bowel Sounds, Distended. No: Tender Extremities: Pedal Edema, Other (venous stasis) Peripheral Pulses: 2+: Dorsalis Pedis (L), Dorsalis Pedis (R) Skin: Warm, Dry, Intact Neuro Extensive - Mental Status: Alert, Oriented x3, Memory Intact Neuro Extensive - Motor, Sensory, Reflexes: Facial palsy (L), Facial Palsy wo Forehead Psychiatric: Alert, Homicidal Ideation - Problem List & Annotations (1) Congestive heart failure SNOMED Code(s): 20192304 Code(s): I50.9 - HEART FAILURE, UNSPECIFIED Status: Acute Priority: High Current Visit: Yes Qualifiers: Heart failure type: unspecified Heart failure chronicity: acute on chronic Qualified Code(s): I50.9 - Heart failure, unspecified (2) Uncontrolled type 2 diabetes mellitus SNOMED Code(s): 350607125, 385172537 Code(s): E11.65 - TYPE 2 DIABETES MELLITUS WITH HYPERGLYCEMIA Status: Acute Priority: High Current Visit: Yes Qualifiers: Coma presence: without coma - Problem List Review Problem List Initiated/Reviewed/Updated: Yes - My Orders Last 24 Hours: My Active Orders 12/11/18 14:28 Insulin Lispro [HumaLOG] See Protocol SUBCUT QIDACANDBED 12/11/18 15:00 Spironolactone [Aldactone] 50 mg PO BID 12/12/18 12:10 Furosemide [Lasix] 80 mg IVPUSH NOW ONE 12/12/18 12:11 hydroCHLOROthiazide 25 mg PO ONETIME ONE 12/12/18 Lunch ADA Diabetic [[place] [employer] Diet] [DIET] 12/13/18 05:00 MAGNESIUM [CHEM] AM PHOSPHORUS [CHEM] AM 12/13/18 05:11 BMP [BASIC METABOLIC PANEL,BMP] [CHEM] AM - Plan Plan:: 1. Daily weights, 2D ECHO results pending, diuresis, unloading, ACEi, BBL. Responding well. 2. Started glargine with SSI. 3. DVTP. 4.Still no need for urgent paracentesis. Will continue observe the response with the above.
[2018-12-12] MEDS ORDERED: Hydrochlorothiazide 25 MG Tab PO ONE ×2 (12:25→16:00)
[2018-12-12] MEDS ORDERED: Furosemide 100 MG/10 ML SDV IVPUSH ONE (12:25)
[2018-12-12] MEDS ORDERED: FUROSEMIDE IV ONE (15:30)
[2018-12-12] MEDS ORDERED: SODIUM CHLORIDE 0.9% IV ONE (15:30)
[2018-12-13] MEDS: Insulin Lispro 100 Units/ML 3 ML Vial SUBCUT SCH ×4 (08:14→12:08)
[2018-12-13] MEDS: Lisinopril 20 MG Tab PO SCH (08:31)
[2018-12-13] MEDS: Carvedilol 12.5 MG Tab PO SCH (08:32)
[2018-12-13] MEDS: Aspirin 325 MG Tab.EC PO SCH (08:32)
[2018-12-13] MEDS: Spironolactone 25 MG Tab PO SCH (08:33)
[2018-12-13] MEDS: Sertraline 50 MG Tab PO SCH (08:33)
[2018-12-13] MEDS: Enoxaparin 40 MG/0.4 ML Syringe SUBCUT SCH (08:34)
[2018-12-13] MEDS: Insulin Glarg,Human.Rec.Analog 100 UNIT/ML ML SUBCUT SCH (08:34)
--- NOTE | 2018-12-13 11:25 | PCM.DCSUM1 ---
Discharge Summary - Hospital Course HPI Initial Comments: 58 yo WM admitted through ED after a visit to primary provider. Was noticed to have gained 16 Lbs, increased abdominal girth. It was felt that the patient might benefit from paracentesis, attempts were made in ED, unsuccessful. The patient is somewhat secretive and desponded, refuses to answer pertinent questions. Has uncontrolled DM, states that not monitoring BG due to risk of loosing job due to the diagnosis. Admitted for further treatment. 12/12/18, responding well to diuresis, electrolytes replaced, SOB improving, ECHO results still pending. 12/13/18, responded well to diuresis, clinically improved. Discussed all medical conditions with the patient. The patient clearly states that does not intend to be compliant with the recommendations. The patient is very high risk for adverse events while driving. The risk management licensing representative, graphic technician as well as primary care provider were notified of high risk for accident while driving or operating the machinery. The patient was notified of his high risk while driving. Being discharged to self care in stable condition. The patient was strongly encouraged to follow with the recommendations: diet, daily weights, BG measurements, subcutaneous insulin as prescribed. Diagnosis: Stroke: No - Discharge Data Discharge Date: 12/13/18 Discharge Disposition: Home, Self-Care 01 Condition: Good - Discharge Diagnosis/Problem(s) (1) Congestive heart failure SNOMED Code(s): 76656407 ICD Code: I50.9 - HEART FAILURE, UNSPECIFIED Status: Acute Priority: High Current Visit: Yes Qualifiers: Heart failure type: unspecified Heart failure chronicity: acute on chronic Qualified Code(s): I50.9 - Heart failure, unspecified (2) Uncontrolled type 2 diabetes mellitus SNOMED Code(s): 581369059, 844144593 ICD Code: E11.65 - TYPE 2 DIABETES MELLITUS WITH HYPERGLYCEMIA Status: Acute Priority: High Current Visit: Yes Qualifiers: Coma presence: without coma - Patient Summary/Data Consults: Consultations 12/10/18 22:03 Consult to Diabetic Nurse Specialist [CONS] Routine 12/11/18 07:54 Consult to Electronic Equipment Maint Tech [CONS] Routine 12/11/18 11:04 HEALTH PROFESSOR Evaluation and Treatment [CONS] Routine - Patient Instructions Diet: Heart Healthy Diet, Diabetic Diet Driving: Do Not Drive - Discharge Plan *PRESCRIPTION DRUG MONITORING PROGRAM REVIEWED*: Not Applicable *COPY OF PRESCRIPTION DRUG MONITORING REPORT IN PATIENT RAS: Not Applicable Prescriptions/Med Rec: Furosemide 40 mg PO DAILY 30 Days #30 tablet Insulin Glarg,Human.Rec.Analog [Lantus] 20 unit SUBCUT DAILY 30 Days #1 vial Insulin Lispro [HumaLOG] See Protocol SUBCUT QIDACANDBED 30 Days #1 vial Home Medications: Home Meds Aspirin [Ecotrin] 325 mg PO DAILY tab.ec 12/13/18 [Rx] Carvedilol [Coreg] 25 mg PO BID tablet 12/13/18 [Rx] Furosemide 40 mg PO DAILY 30 Days #30 tablet 12/13/18 [Rx] Insulin Glarg,Human.Rec.Analog [Lantus] 20 unit SUBCUT DAILY 30 Days #1 vial [Rx] Insulin Lispro [HumaLOG] See Protocol SUBCUT QIDACANDBED 30 Days #1 vial [Rx] Lisinopril [Prinivil] 20 mg PO DAILY tablet 12/13/18 [Rx] Sertraline [Zoloft] 100 mg PO DAILY tablet 12/13/18 [Rx] Spironolactone [Aldactone] 50 mg PO BID tablet 12/13/18 [Rx] Patient Handouts: Heart Failure Action Plan, Heart Failure Forms: ED Department Discharge Referrals: Sondra Vega PA-C [Primary Care Provider] - - Discharge Summary/Plan Comment DC Time >30 min.: Yes - Patient Data Vitals - Most Recent: Last Vital Signs Temp 97.2 F 12/13/18 07:24 Pulse 68 12/13/18 08:32 Resp 14 12/13/18 07:24 BP 115/76 12/13/18 08:32 Pulse Ox 99 12/13/18 07:24 Weight - Most Recent: 292 lb 3.2 oz I&O - Last 24 hours: Intake & Output 12/12/18 12/13/18 12/13/18 19:59 03:59 11:59 Intake Total 1175 180 Output Total 1300 2900 Balance -125 -2720 Lab Results - Last 24 hrs: Laboratory Results - last 24 hr 12/12/18 12/12/18 12/13/18 Range/Units 16:53 20:58 05:47 Sodium (136-145) mEq/L Potassium (3.5-5.1) mEq/L Chloride (98-107) mEq/L Carbon Dioxide (21-32) mEq/L Anion Gap (5-15) BUN (7-18) mg/dL Creatinine (0.7-1.3) mg/dL Est Cr Clr Drug Dosing mL/min Estimated GFR (MDRD) (>60) mL/min BUN/Creatinine Ratio (14-18) Glucose (74-106) mg/dL POC Glucose 159 H 193 H (70-105) mg/dL Calcium (8.5-10.1) mg/dL Phosphorus 4.7 (2.6-4.7) mg/dL Magnesium 1.9 (1.8-2.4) mg/dl 12/13/18 12/13/18 Range/Units 05:47 06:44 Sodium 139 (136-145) mEq/L Potassium 3.7 (3.5-5.1) mEq/L Chloride 101 (98-107) mEq/L Carbon Dioxide 31 (21-32) mEq/L Anion Gap 10.7 (5-15) BUN 28 H (7-18) mg/dL Creatinine 1.1 (0.7-1.3) mg/dL Est Cr Clr Drug Dosing 84.10 mL/min Estimated GFR (MDRD) > 60 (>60) mL/min BUN/Creatinine Ratio 25.5 H (14-18) Glucose 117 H (74-106) mg/dL POC Glucose 138 H (70-105) mg/dL Calcium 8.7 (8.5-10.1) mg/dL Phosphorus (2.6-4.7) mg/dL Magnesium (1.8-2.4) mg/dl Med Orders - Current: Current Medications Acetaminophen (Tylenol) 650 mg PO Q4H PRN PRN Reason: Pain (Mild 1-3)/fever Aspirin (Ecotrin) 325 mg PO DAILY [facility] Last Admin: 12/13/18 08:32 Dose: 325 mg Carvedilol (Coreg) 25 mg PO BID [facility] Last Admin: 12/13/18 08:32 Dose: 25 mg Dextrose/Water (Dextrose 50% In Water) 50 ml IV ASDIRECTED PRN PRN Reason: Hypoglycemia Enoxaparin Sodium (Lovenox) 40 mg SUBCUT DAILY [facility] Last Admin: 12/13/18 08:34 Dose: 40 mg Insulin Glargine (Lantus) 20 unit SUBCUT DAILY [facility] Last Admin: 12/13/18 08:34 Dose: 20 units Insulin Human Lispro (Humalog) 5 unit SUBCUT TIDAC [facility] Last Admin: 12/13/18 08:35 Dose: 5 units Insulin Human Lispro (Humalog) 0 unit SUBCUT QIDACANDBED [facility]; Protocol Last Admin: 12/13/18 08:14 Dose: Not Given Lisinopril (Prinivil) 20 mg PO DAILY [facility] Last Admin: 12/13/18 08:31 Dose: 20 mg Sertraline HCl (Zoloft) 100 mg PO DAILY [facility] Last Admin: 12/13/18 08:33 Dose: 100 mg Spironolactone (Aldactone) 50 mg PO BID [facility] Last Admin: 12/13/18 08:33 Dose: 50 mg Discontinued Medications Dextrose/Water (Dextrose 50% In Water) 50 ml IVPUSH ASDIRECTED PRN PRN Reason: Hypoglycemia Fentanyl (Sublimaze) 250 mcg IVPUSH ONETIME ONE Stop: 12/10/18 17:54 Last Admin: 12/10/18 19:09 Dose: Not Given Fentanyl (Sublimaze) Confirm Administered Dose 300 mcg .ROUTE .STK-MED ONE Stop: 12/10/18 17:58 Last Admin: 12/10/18 19:09 Dose: Not Given Fentanyl (Sublimaze) 100 mcg IVPUSH ONETIME ONE Stop: 12/10/18 19:09 Last Admin: 12/10/18 18:15 Dose: 100 mcg Furosemide (Lasix) 40 mg IVPUSH NOW ONE Stop: 12/10/18 18:53 Last Admin: 12/10/18 19:20 Dose: 40 mg Furosemide (Lasix) 40 mg IVPUSH DAILY [facility] Last Admin: 12/11/18 08:27 Dose: 40 mg Furosemide (Lasix) 80 mg IVPUSH NOW ONE Stop: 12/11/18 14:45 Last Admin: 12/11/18 15:04 Dose: Not Given Furosemide (Lasix) 80 mg IVPUSH NOW ONE Stop: 12/12/18 12:26 Last Admin: 12/12/18 15:44 Dose: Not Given Hydrochlorothiazide (Hydrochlorothiazide) 25 mg PO ONETIME ONE Stop: 12/12/18 16:01 Last Admin: 12/12/18 15:54 Dose: 25 mg Albumin Human (Flexbumin 25%) 12.5 gm in 50 mls @ 100 mls/hr IV ONETIME ONE Stop: 12/10/18 18:36 Last Admin: 12/10/18 19:00 Dose: Not Given Magnesium Sulfate 2 gm/ Premix 50 mls @ 25 mls/hr IV ONETIME ONE Stop: 12/11/18 13:03 Last Admin: 12/11/18 11:43 Dose: 25 mls/hr Furosemide 40 mg/ Sodium (Chloride) 46 mls @ 42.593 mls/hr IV ONETIME ONE Stop: 12/11/18 16:04 Last Admin: 12/11/18 16:31 Dose: Not Given Furosemide 80 mg/ Sodium (Chloride) 50 mls @ 46.296 mls/hr IV ONETIME ONE Stop: 12/11/18 16:04 Last Admin: 12/11/18 15:24 Dose: 46.296 mls/hr Magnesium Sulfate 2 gm/ Premix 50 mls @ 25 mls/hr IV ONETIME ONE Stop: 12/12/18 11:59 Last Admin: 12/12/18 10:33 Dose: 25 mls/hr Furosemide 80 mg/ Sodium (Chloride) 50 mls @ 100 mls/hr IV ONETIME ONE Stop: 12/12/18 15:59 Last Admin: 12/12/18 15:54 Dose: 100 mls/hr Insulin Glargine (Lantus) 20 unit SUBCUT BIDAC LAYLA Insulin Human Lispro (Humalog) 0 unit SUBCUT QIDACANDBED [facility]; Protocol Last Admin: 12/11/18 11:41 Dose: 3 units Insulin Human Lispro (Humalog) 5 unit SUBCUT BIDAC LAYLA Lidocaine/Epinephrine (Xylocaine 1% With Epinephrine 1:100,000) 20 ml INJECT ONETIME ONE Stop: 12/10/18 17:55 Last Admin: 12/10/18 18:30 Dose: 20 ml Midazolam HCl (Versed 1 Mg/Ml) 5 mg IVPUSH ONETIME ONE Stop: 12/10/18 17:54 Last Admin: 12/11/18 05:41 Dose: Not Given Midazolam HCl (Versed 1 Mg/Ml) Confirm Administered Dose 6 mg .ROUTE .STK-MED ONE Stop: 12/10/18 17:58 Last Admin: 12/10/18 19:09 Dose: Not Given Midazolam HCl (Versed 1 Mg/Ml) 5 mg IVPUSH ONETIME ONE Stop: 12/10/18 19:05 Last Admin: 12/11/18 05:41 Dose: Not Given Midazolam HCl (Versed 1 Mg/Ml) 5 mg IVPUSH ONETIME ONE Stop: 12/10/18 19:09 Last Admin: 12/10/18 18:16 Dose: 5 mg
[2018-12-13 11:44] VITALS: BP 112/78
== END 2018-12-13 16:25 | disposition home or self-care (01) | DRG 292 ==
LOC: JD.ED 15:56 → JD.MS 19:53
PROVIDERS: ADMIT Family Medicine; ATTEND Family Medicine
PROC: 0WJG3ZZ Inspection of Peritoneal Cavity, Percutaneous Approach (ICD-10-PCS; principal; 2018-12-10)
DX: I11.0 Hypertensive heart disease with heart failure (principal); Z68.41 Body mass index [BMI] 40.0-44.9, adult; R18.8 Other ascites; I50.813 Acute on chronic right heart failure; I50.1 Left ventricular failure, unspecified; E11.65 Type 2 diabetes mellitus with hyperglycemia; H54.7 Unspecified visual loss; I69.391 Dysphagia following cerebral infarction; I69.328 Other speech and language deficits following cerebral infarction; R13.10 Dysphagia, unspecified; F32.9 Major depressive disorder, single episode, unspecified; R16.0 Hepatomegaly, not elsewhere classified; I42.9 Cardiomyopathy, unspecified; N40.0 Benign prostatic hyperplasia without lower urinary tract symptoms; I87.2 Venous insufficiency (chronic) (peripheral); E66.01 Morbid (severe) obesity due to excess calories; Z79.82 Long term (current) use of aspirin; Z79.84 Long term (current) use of oral hypoglycemic drugs; Z87.891 Personal history of nicotine dependence; Z79.899 Other long term (current) drug therapy
CPT/HCPCS: 36415; 36600; 49082; 71045; 71045-26; 80048; 80053; 80061; 82550; 82803; 82962; 83036; 83605; 83690; 83735; 83880; 84100; 84443; 84484; 85025; 85610; 85730; 92610-GN; 93010; 93306; 96374; 96375; 99285; 99285-25; A9270-GY; C1729; J1650; J1815-GY; J1940; J2250; J3010; J3475; J7050